=== PATIENT | female | born 1950 | race Two or more races ===

== ENCOUNTER → 2017-12-12 | Outpatient (CLI) | payer OTHER | END | disposition home or self-care (01) | LOC: PPH VACUNA 09:11 | DX: Z23 Encounter for immunization (principal) ==

== ENCOUNTER → 2017-12-30 | Outpatient (CLI) | payer OTHER | END | disposition home or self-care (01) | LOC: PPH VACUNA 10:39 | DX: Z23 Encounter for immunization (principal) ==

== ENCOUNTER 2020-07-21 12:08 | Outpatient (CLI) | payer OTHER | END 2020-07-21 12:22 | disposition home or self-care (01) | LOC: NUCLEAR 12:08 | PROVIDERS: ATTEND Neurological Surgery | DX: M81.0 Age-related osteoporosis without current pathological fracture (principal); M48.062 Spinal stenosis, lumbar region with neurogenic claudication ==